=== PATIENT | male | born 1980 | race Two or more races ===

== ENCOUNTER 2017-09-22 18:50 | Emergency (ER) | payer MEDICAID, OTHER ==
[~2017-09-22] VITALS: Ht 182.9 cm; Wt 83.9 kg
[2017-09-22 19:42] VITALS: BP 140/94
== END 2017-09-22 21:23 | disposition home or self-care (01) ==
LOC: ER 19:04
DX: J02.9 Acute pharyngitis, unspecified (principal)

== ENCOUNTER 2020-07-06 17:42 | Emergency (ER) | payer MEDICAID ==
[~2020-07-06] VITALS: Ht 182.9 cm; Wt 76.7 kg
[2020-07-06] MEDS ORDERED: IOHEXOL 350 MG/ML 100ML IJ ONE (18:45)
[2020-07-06 18:47] LABS: Basophils # (auto) 0.1 10 ^3/uL (0-0.2); Basophils % (auto) 0.6 % (0.0-2.0); Eosinophils # (auto) 0.2 10 ^3/uL (0-0.8); Eosinophils % (auto) 1.6 % (0.0-7.0); Hematocrit 44.9 % (41.0-53.0); Hemoglobin 15.7 g/dL (13.5-17.5); Lymphocytes # (auto) 2.9 10 ^3/uL (0.4-5.4); Mean Corpuscular Hemoglobin 32.7 pg (28.0-32.0); Mean Corpuscular Volume 93.4 fL (80.0-100.0); Monocytes % (auto) 9.3 % (0.0-12.0); Neutrophils # (auto) 6.4 10 ^3/uL (1.6-8.6); Neutrophils % (auto) 60.5 % (37.0-80.0); Nucleated Red Blood Cells % 0.1 %; Platelet Count (auto) 298 10^3/uL (140-450); Red Blood Cells 4.81 10^6/uL (4.5-5.90); Red Cell Distribution Width 12.5 % (11.8-14.3); White Blood Cell 10.5 10^3/uL (4.4-10.8)
[2020-07-06 19:05] LABS: Albumin 4.6 g/dL (3.4-5.0); Calcium 9.4 mg/dL (8.5-10.1); Potassium 3.8 mmol/L (3.5-5.1)
[2020-07-06 19:08] LABS: BUN/Creatinine Ratio 12.5; Bilirubin, Total 0.9 mg/dL (0.2-1.0); Total Protein 7.7 g/dL (6.4-8.2)
[2020-07-06 19:46] VITALS: BP 119/82
[2020-07-06 20:14] LABS: INR 0.97 (0.9-1.15); Partial Thromboplastin Time 27.9 sec (23.0-31.2)
== END 2020-07-06 20:55 | disposition home or self-care (01) ==
LOC: ER 17:42
DX: M65.262 Calcific tendinitis, left lower leg (principal)
CPT/HCPCS: 36415; 73590; 80053; 85025; 85610; 85730; 93971

== ENCOUNTER 2023-08-06 09:49 | Emergency (ER) | payer MEDICAID ==
[~2023-08-06] VITALS: Ht 182.9 cm; Wt 70.6 kg
[2023-08-06 10:05] VITALS: BP 127/90; PULSE 85; RESP 18; TEMP 97.9; O2SAT 99
== END 2023-08-06 12:15 | disposition home or self-care (01) ==
LOC: ER 09:49
DX: M79.641 Pain in right hand (principal)
CPT/HCPCS: 73130